=== PATIENT | male | born 1970 | race Caucasian/White ===

== ENCOUNTER 2018-06-12 15:13 | Emergency (ER) | payer SELFPAY ==
--- NOTE | 2018-06-12 15:20 | NUR ---
Per patients in lobby pt left after being off loaded from EMS. Looked for pt in lobby, restroom, and outside, Pt not found. ER MD had evaluated pt on EMS stretcher prior to pt eloping. NAD noted at the present time.
== END 2018-06-12 15:21 | disposition short-term general hospital (02) ==
LOC: ER 15:13
DX: R07.9 Chest pain, unspecified (principal)